=== PATIENT | male | born 1985 | race Caucasian/White ===

== ENCOUNTER 2018-03-14 10:53 | Emergency (ER) | payer OTHER ==
[~2018-03-14] VITALS: Ht 177.8 cm; Wt 83.9 kg
[2018-03-14] MEDS ORDERED: PERCOCET 5-3251 EACH PO (13:13)
== END 2018-03-14 13:29 | disposition home or self-care (01) ==
LOC: ED 10:53
PROC: 2W3DX1Z Immobilization of Left Lower Arm using Splint (ICD-10-PCS; principal; 2018-03-14)
DX: S67.22XA Crushing injury of left hand, initial encounter (principal); S62.331A Displaced fracture of neck of second metacarpal bone, left hand, initial encounter for closed fracture; S62.333A Displaced fracture of neck of third metacarpal bone, left hand, initial encounter for closed fracture; Z23 Encounter for immunization; W23.0XXA Caught, crushed, jammed, or pinched between moving objects, initial encounter; Y92.89 Other specified places as the place of occurrence of the external cause; Y99.0 Civilian activity done for income or pay
CPT/HCPCS: 29125; 73130; 90471; 99283